=== PATIENT | male | born 1990 | race Caucasian/White ===

== ENCOUNTER 2020-06-07 08:47 | Emergency (ER) | payer OTHER ==
[~2020-06-07] VITALS: Ht 154.9 cm; Wt 59.0 kg
[~2020-06-07 08:47] MED LIST: CEPH-264 PO; HYDR-3165 PO
[2020-06-07 08:51] VITALS: BP 120/74
--- NOTE | 2020-06-07 09:24 | PHYS DOC ---
Past History Past Medical History: No Pertinent History Past Surgical History: No Surgical History Alcohol Use: None Drug Use: None General Adult EDM: Chief Complaint: CHEST PAIN HPI: HPI: Patient is a 30-year-old male coming in for evaluation of right-sided chest pain since last night. Patient did state that yesterday he was lifting 60 pound boxes. Patient states he was having difficulty sleeping secondary to pain which he says is worse when he lays on his back or his stomach, was able to sleep on his side. Patient states the pain is also worse taking a deep breath. States it is sharp and sometimes rates the back. Has not taken anything for pain. Denies any cough, shortness of breath, left-sided chest pain, fevers, vomiting, diarrhea, or lower extremity edema. Has no past medical history, also has no past family medical history. Patient denies any alcohol, tobacco, drugs. Denies any sick contacts but states his was diagnosed with "inflammation of the lung" 2 weeks ago. Review of Systems: Review of Systems: All other systems within normal limits except for as noted in the HPI Allergies: Allergies: Allergies Coded Allergies Type Severity Reaction Last Updated Verified No Known Drug Allergies 11/04/15 No Physical Exam: PE: Constitutional: Well developed, well nourished, no acute distress, non-toxic appearance. [] HENT: Normocephalic, atraumatic, bilateral external ears normal, nose normal. [] Eyes: PERRLA, conjunctiva normal, no discharge. [] Neck: No rigidity, supple, no stridor. [] Cardiovascular: Regular rate and rhythm, brisk cap refill, symmetric upper extremity pulses [] Lungs & Thorax: Non labored symmetric respirations, no tachypnea or respiratory distress. Lungs clear to auscultation. Right-sided chest pain nonreproducible palpation [] Abdomen: Soft, nondistended. Skin: Warm, dry, no erythema, no rash. [] Back: Unremarkable Extremities: No deformities, range of motion grossly intact, no lower extremity edema [] Neurologic: Alert and oriented X 3, no focal deficits noted. [] Psychologic: Affect normal, judgement normal, mood normal. [] Current Patient Data: Vital Signs: Vital Signs Date Time Temp Pulse Resp B/P (MAP) Pulse Ox O2 Delivery O2 Flow Rate FiO2 06/07/20 08:51 97.6 56 16 120/74 (89) 97 Room Air EKG: EKG: Normal sinus rhythm, normal axis, no ST elevation or depression, no ectopy, normal intervals. Heart rate 47 bpm [] Radiology/Procedures: Radiology/Procedures: PA and lateral views of the chest. Comparison: None. Indication: Right-sided chest pain Findings: The heart size is normal. No pneumothorax or effusion. No air space or interstitial disease. The bony structures are intact. Impression: 1. No acute cardiopulmonary process. [] Heart Score: C/O Chest Pain: Yes HEART Score for Chest Pain: HEART Score for Chest Pain Response (Comments) Value History Slighlty/Non-Suspicious 0 ECG Normal 0 Age < 45 0 Risk Factors No Risk Factors 0 Troponin < Normal Limit 0 Total 0 Risk Factors: Risk Factors: DM, Current or recent (<one month) smoker, HTN, HLP, family history of CAD, obesity. Risk Scores: Score 0 - 3: 2.5% MACE over next 6 weeks - Discharge Home Score 4 - 6: 20.3% MACE over next 6 weeks - Admit for Clinical Observation Score 7 - 10: 72.7% MACE over next 6 weeks - Early Invasive Strategies Course & Med Decision Making: Course & Med Decision Making Pertinent Labs and Imaging studies reviewed. (See chart for details) [] Dragon Disclaimer: Mallika Disclaimer: This electronic medical record was generated, in whole or in part, using a voice recognition dictation system. Departure Departure: Impression: Primary Impression: Anterior chest wall pain Disposition: 01 DC HOME SELF CARE/HOMELESS Condition: STABLE Referrals: PRANEETH BROCK (PCP) Patient Instructions: Chest Pain (Nonspecific) KENDRA JUAREZ MD Jun 07, 2020 09:24
--- NOTE | 2020-06-07 09:49 | RAD ---
PA and lateral views of the chest. Comparison: None. Indication: Right-sided chest pain Findings: The heart size is normal. No pneumothorax or effusion. No air space or interstitial disease. The bon y structures are intact. Impression: 1. No acute cardiopulmonary process. Electronically signed by: Ronnie Quintero MD (06/07/2020 9:47 AM) [id number]
[2020-06-07 10:14] LABS: BASO % 1 % (0-3); EOS # 0.1 x10^3/uL (0.0-0.7); EOS % 1 % (0-3); HEMATOCRIT 47.2 % (36.0-47.0); HEMOGLOBIN 16.1 g/dL (12.0-15.5); LYMPH # 2.1 x10^3/uL (1.0-4.8); LYMPH % 33 % (24-48); MEAN CORPUSCULAR HEMOGLOBIN 31 pg (25-35); MEAN CORPUSCULAR HGB CONC 34 g/dL (31-37); MEAN CORPUSCULAR VOLUME 91 fL (79-100); MONO # 0.7 x10^3/uL (0.0-1.1); MONO % 11 % (0-9); NEUT # 3.6 x10^3uL (1.8-7.7); NEUT % 55 % (31-73); PLATELET COUNT 245 x10^3/uL (140-400); RED BLOOD COUNT 5.19 x10^6/uL (3.50-5.40); RED CELL DISTRIBUTION WIDTH 12.8 % (11.5-14.5); WHITE BLOOD COUNT 6.4 x10^3/uL (4.0-11.0)
[2020-06-07 10:17] LABS: CALCIUM 8.8 mg/dL (8.5-10.1); CREATININE 1.1 mg/dL (0.6-1.0); GFR 57.6; POTASSIUM 3.4 mmol/L (3.5-5.1)
[2020-06-07 10:23] LABS: ALBUMIN 3.9 g/dL (3.4-5.0); ALBUMIN/GLOBULIN RATIO 1.3 (1.0-1.7); TOTAL BILIRUBIN 1.4 mg/dL (0.2-1.0); TOTAL PROTEIN 6.8 g/dL (6.4-8.2)
--- NOTE | 2020-06-07 12:23 | EKG ---
[address] [address] Test Date: 2020-06-07 Test Time: 09:06:02 Pat Name: FERNANDO GREEN Department: Room: Gender: F Trouble Locater: KISHAN : 1990 Requested By: KENDRA JUAREZ Order Number: [id number] Reading MD: Measurements Intervals [place] Rate: 47 P: 53 NM: 190 QRS: 16 QRSD: 102 T: 47 QT: 430 QTc: 381 Interpretive Statements SINUS BRADYCARDIA OTHERWISE NORMAL ECG RI6.02 No previous ECG available for comparison
== END 2020-06-07 11:28 | disposition home or self-care (01) ==
LOC: EDSEX 08:47 → ER 08:47
DX: R07.89 Other chest pain (principal)
CPT/HCPCS: 36415; 71046; 80053; 84484; 85025; 85379; 93005; 99285